=== PATIENT | female | born 1935 | race Caucasian/White ===

== ENCOUNTER 2018-10-22 18:24 | Observation (INO) | payer MEDICARE, OTHER ==
[2018-10-22 18:59] LABS: ADD MAN DIFF? NO
[2018-10-22 19:02] LABS: BASOPHILS % 0.4 % (0.0-2.0); HEMOGLOBIN 11.6 g/dl (12.0-16.0); LYMPHOCYTES # 2.2 10^3/ul (0.8-2.9); LYMPHOCYTES % 30.8 % (15.0-51.0); MEAN CORPUSCULAR HEMOGLOBIN 28.6 pg (29.0-33.0); MEAN CORPUSCULAR HGB CONC 32.2 g/dl (32.0-37.0); MEAN CORPUSCULAR VOLUME 88.9 fl (82.0-101.0); MEAN PLATELET VOLUME 8.7 fl (7.4-10.4); MONOCYTE # 0.4 10^3/ul (0.3-0.9); MONOCYTES % 5.7 % (0.0-11.0); NEUTROPHIL # 4.6 10^3/ul (1.6-7.5); PLATELET COUNT 242 10^3/UL (140-415); RED BLOOD COUNT 4.05 10^6/ul (4.20-5.40); RED CELL DISTRIBUTION WIDTH 13.3 % (11.5-14.5)
[2018-10-22 19:02] LABS: WHITE BLOOD COUNT 7.3 10^3/ul (4.8-10.8)
[2018-10-22 19:21] LABS: ANION GAP 6 (5-13); BLOOD UREA NITROGEN 17 mg/dl (7-20); CALCIUM 8.2 mg/dl (8.4-10.2); CARBON DIOXIDE 25 mmol/L (21-31); CHLORIDE 102 mmol/L (97-110); CREATININE 0.93 mg/dl (0.44-1.00); GLUCOSE 98 mg/dl (70-220); POTASSIUM 4.9 mmol/L (3.5-5.1); SODIUM 133 mmol/L (135-144)
[2018-10-22 19:33] LABS: TROPONIN-I < 0.012 ng/ml (0.000-0.120)
[2018-10-22] MEDS ORDERED: ONDANSETRON 4 MG INJ IV (20:00)
[2018-10-22] MEDS: ONDANSETRON 4 MG INJ IV (20:05)
[2018-10-22] MEDS: morphine 2 MG INJ IV (20:06)
[2018-10-22] MEDS ORDERED: ZOLPIDEM 5 MG TAB PO (22:00)
[2018-10-22] MEDS: ATORVASTATIN 10 MG TAB PO (22:00)
[2018-10-22] MEDS: LORAZEPAM 1 MG TAB PO (23:45)
[2018-10-23 01:35] LABS: CREATINE KINASE 62 IU/L (23-200)
[2018-10-23 02:23] LABS: CK INDEX 0.8; CK-MB 0.48 ng/ml (0.0-2.4); TROPONIN-I < 0.012 ng/ml (0.000-0.120)
[2018-10-23 06:12] LABS: ADD MAN DIFF? NO
[2018-10-23 06:22] LABS: WHITE BLOOD COUNT 7.4 10^3/ul (4.8-10.8)
[2018-10-23 06:22] LABS: BASOPHILS % 0.4 % (0.0-2.0); HEMATOCRIT 34.8 % (37.0-47.0); HEMOGLOBIN 11.3 g/dl (12.0-16.0); LYMPHOCYTES # 3.3 10^3/ul (0.8-2.9); LYMPHOCYTES % 44.4 % (15.0-51.0); MEAN CORPUSCULAR HEMOGLOBIN 29.3 pg (29.0-33.0); MEAN CORPUSCULAR HGB CONC 32.5 g/dl (32.0-37.0); MEAN CORPUSCULAR VOLUME 90.2 fl (82.0-101.0); MEAN PLATELET VOLUME 8.2 fl (7.4-10.4); MONOCYTE # 0.5 10^3/ul (0.3-0.9); MONOCYTES % 7.1 % (0.0-11.0); NEUTROPHIL # 3.5 10^3/ul (1.6-7.5); NEUTROPHILS % 47.8 % (39.0-77.0); PLATELET COUNT 200 10^3/UL (140-415); RED BLOOD COUNT 3.86 10^6/ul (4.20-5.40); RED CELL DISTRIBUTION WIDTH 13.4 % (11.5-14.5)
[2018-10-23 06:42] LABS: CHOLESTEROL 195 mg/dl (100-200)
[2018-10-23 06:42] LABS: ANION GAP 4 (5-13); BLOOD UREA NITROGEN 22 mg/dl (7-20); CALCIUM 8.2 mg/dl (8.4-10.2); CARBON DIOXIDE 29 mmol/L (21-31); CHLORIDE 101 mmol/L (97-110); CHOL/HDL RATIO 4.2 RATIO; CREATININE 0.95 mg/dl (0.44-1.00); GLUCOSE 98 mg/dl (70-220); HDL CHOLESTEROL 46 mg/dl (33-92); LDL CHOLESTEROL,CALCULATED 128 mg/dl; POTASSIUM 4.2 mmol/L (3.5-5.1); SODIUM 134 mmol/L (135-144); TRIGLYCERIDES 103 mg/dl (0-149)
[2018-10-23 06:44] LABS: CREATINE KINASE 52 IU/L (23-200)
[2018-10-23 06:51] LABS: B-TYPE NATRIURETIC PEPTIDE 78 PG/ML (0-450)
[2018-10-23 06:53] LABS: CK INDEX 0.8; CK-MB 0.42 ng/ml (0.0-2.4); TROPONIN-I < 0.012 ng/ml (0.000-0.120)
[2018-10-23] MEDS ORDERED: PANTOPRAZOLE 40 MG INJ IV (09:00)
[2018-10-23] MEDS: AMLODIPINE 10 MG TAB PO (09:16)
[2018-10-23] MEDS: ASPIRIN (EC) 81 MG TAB PO (09:17)
[2018-10-23] MEDS: ISOSORBIDE MONONITRATE(SR)30 MG TAB PO (09:17)
[2018-10-23] MEDS: DOCUSATE SODIUM 100 MG CAP PO (09:17)
[2018-10-23] MEDS: DULOXETINE 30 MG CAP DR PO (09:17)
[2018-10-23] MEDS: ACETAMINOPHEN 325 MG TAB PO ×2 (09:18→15:49)
[2018-10-23] MEDS: FAMOTIDINE 20 MG INJ IV (09:19)
[2018-10-23] MEDS: CYCLOSPORINE 0.05% OPH DROPERETTE BOTH EYES (09:19)
[2018-10-23] MEDS: REGADENOSON 0.4 MG/5 ML SYG (12:58)
[2018-10-23] MEDS: MAGNESIUM HYDROXIDE 30ML CUP PO (15:49)
[2018-10-23] MEDS ORDERED: DOCUSATE SODIUM 250 MG CAP PO (21:00)
== END 2018-10-23 20:00 | disposition home or self-care (01) ==
LOC: TEL 19:40 → E/R 18:24
DX: R07.9 Chest pain, unspecified (principal); I11.0 Hypertensive heart disease with heart failure; I50.9 Heart failure, unspecified; I25.10 Atherosclerotic heart disease of native coronary artery without angina pectoris; E78.5 Hyperlipidemia, unspecified; J44.9 Chronic obstructive pulmonary disease, unspecified; J45.909 Unspecified asthma, uncomplicated; F32.9 Major depressive disorder, single episode, unspecified; F41.9 Anxiety disorder, unspecified; K21.9 Gastro-esophageal reflux disease without esophagitis; R51 Headache; R53.1 Weakness; F03.90 Unspecified dementia, unspecified severity, without behavioral disturbance, psychotic disturbance, mood disturbance, and anxiety; D64.9 Anemia, unspecified; E87.1 Hypo-osmolality and hyponatremia; Z79.82 Long term (current) use of aspirin
CPT/HCPCS: 36415; 71045; 78452; 80048; 80061; 82550; 82553; 83880; 84484; 85025; 93005; 93017; 93306; 93880; 99285-25; G0378